=== PATIENT | female | born 1985 | race Caucasian/White ===

== ENCOUNTER → 2019-10-26 13:27 | Outpatient (BNVA) | payer MEDICAID, SELFPAY | PROVIDERS: Family Provider Family Medicine; Visit Provider Nurse Practitioner Family | DX: M25.571 Pain in right ankle and joints of right foot (principal); M25.471 Effusion, right ankle | CPT/HCPCS: 73610 ==

== ENCOUNTER → 2020-07-01 15:41 | Outpatient (BNVA) | payer MEDICAID, SELFPAY | PROVIDERS: Family Provider Family Medicine; Visit Provider Nurse Practitioner Family | DX: Z11.59 Encounter for screening for other viral diseases (principal) | CPT/HCPCS: 87635 ==

== ENCOUNTER → 2023-03-08 14:31 | Outpatient (BNVA) | payer MEDICAID, SELFPAY | PROVIDERS: Family Provider Family Medicine; Visit Provider Nurse Practitioner Family | DX: J02.9 Acute pharyngitis, unspecified (principal) | CPT/HCPCS: 87880 ==

== ENCOUNTER 2023-10-30 15:39 | Emergency (ER) | payer OTHER, SELFPAY ==
[2023-10-30 15:46] VITALS: BP 114/68; PULSE 90; RESP 18; TEMP 36.6; O2SAT 98; BMI 28.3
[2023-10-30 17:46] LABS: Basophils # 0.1 10^3/uL (0.0-0.1); Eosinophils # 0.2 10^3/uL (0.0-0.8); Eosinophils % 2.8 %; Lymphocytes # 2.2 10^3/uL (0.8-4.8); Lymphocytes % 35.9 %; Mean Corpuscular HGB Conc 32.4 g/dL (30-55); Mean Corpuscular Hemoglobin 33.2 pg (27-33); Mean Corpuscular Volume 102.4 fl (85-98); Monocytes # 0.4 10^3/uL (0.2-0.9); Monocytes % 7.1 %; Neutrophils # 3.23 10^3/uL (1.8-7.7); Nucleated Red Blood Cells % 0 %; Platelet Count 247 10^3/cmm (157-399); Red Blood Count 3.71 10^6/uL (3.85-5.65); Red Cell Distribution Width 11.5 % (12.1-15.1); White Blood Count 6.08 10^3/uL (3.29-11.43)
[2023-10-30 18:11] LABS: Alanine Aminotransferase 34 U/L (0-33); Albumin Level 4.2 g/dL (3.5-5.2); Alkaline Phosphatase 71 U/L (35-105); Anion Gap 12.9 (5-19); Aspartate Amino Transferase 28 U/L (0-32); Blood Urea Nitrogen 11 mg/dL (6-20); Calcium 8.9 mg/dL (8.5-10.5); Carbon Dioxide 26 mmol/L (22-29); Chloride 104 mmol/L (98-107); Globulin 2.9 g/dL (1.3-4.6); Glomerular Filtration Rate 69.7 mL/min (90-130); Glucose 91 mg/dL (65-115); Lipase 30 U/L (13-60); Osmolality Calculated 287 mOsm/kg (285-295); Potassium 3.9 mmol/L (3.5-5.1); Sodium 139 mmol/L (136-145); Total Bilirubin 0.2 mg/dL (0.15-1.2); Total Protein 7.1 g/dL (6.6-8.7)
--- NOTE | 2023-10-30 18:52 | USR_ITS ---
PROCEDURE INFORMATION: Exam: US Abdomen, Limited; Right Upper Quadrant Exam date and time: 10/30/2023 6:09 PM Age: 37 years old Clinical indication: Abdominal pain; Additional info: Ruq pain TECHNIQUE: Imaging protocol: Real time ultrasound of the abdomen with image documentation. Limited exam focused on the right upper quadrant. COMPARISON: No relevant prior studies available. FINDINGS: Liver: No acute findings. Gallbladder: Gallbladder is contracted otherwise without evidence of acute cholecystitis. Biliary ducts: No dilation. Pancreas: Visualized pancreas is unremarkable. Right kidney: No hydronephrosis. US/US gall bladder [id number] IMPRESSION: No acute findings.
[2023-10-30 19:02] LABS: HCG, Serum Qual Negative (Negative)
--- NOTE | 2023-10-30 19:26 | CTR_ITS ---
PROCEDURE INFORMATION: Exam: CT Abdomen And Pelvis With Contrast Exam date and time: 10/30/2023 7:55 PM Age: 37 years old Clinical indication: Abdominal pain; Flank; Right; Prior surgery; Surgery date: 6+ months; Surgery type: Csection 15 years ago; Additional info: Ruq pain TECHNIQUE: Imaging protocol: Computed tomography of the abdomen and pelvis with contrast. Radiation optimization: All CT scans at this facility use at least one of these dose optimization techniques: automated exposure control; mA and/or kV adjustment per patient size (includes targeted exams where dose is matched to clinical indication); or iterative reconstruction. Contrast material: OMNI 350; Contrast volume: 100 ml; Contrast route: INTRAVENOUS (IV); COMPARISON: US gall bladder [id number] 10/30/2023 6:09 PM RADIATION DOSE METRICS: Total DLP (mGy-cm): 494 FINDINGS: Liver: No acute findings Gallbladder and bile ducts: No stones or evidence of acute cholecystitis. Pancreas: No ductal dilation. Spleen: No splenomegaly. Adrenal glands: No mass. Kidneys and ureters: No stones or hydronephrosis. Stomach and bowel: No obstruction. Appendix: Normal appendix. Intraperitoneal space: No free air. No significant fluid collection. Vasculature: No abdominal aortic aneurysm. Lymph nodes: No enlarged lymph nodes. Urinary bladder: No acute findings. Reproductive: No acute findings. Bones/joints: No acute findings. Soft tissues: No acute findings. CT/CT abdomen pelvis w con* [id number] IMPRESSION: No acute abdominal findings.
[2023-10-30] MEDS: ketorolac 30 mg/mL INJ IVP (19:54)
[2023-10-30] MEDS: ondansetron 2 mg/ML SDV 2 mL 4 MG IVP (19:55)
[2023-10-30] MEDS: sodium chloride 0.9% 1,000 ML 999 ML IV (19:55)
[2023-10-30] MEDS: iohexol 350 mg/mL 500 mL Btl (per mL) IV (19:57)
[2023-10-30 21:02] LABS: Urine Appearance Clear (CLEAR); Urine Color Yellow (Yellow)
[2023-10-30 21:07] LABS: Bilirubin Urine Neg (Negative); Blood Urine 3+ (Negative); Glucose Urine UA Norm (Normal); Ketones Urine Negative (Negative); Leukocyte Esterase Urine Trace (Negative); Nitrate Urine Negative (Negative); Protein Urine Neg (Negative); Specific Gravity, Urine 1.005 (1.005-1.030); Urobilinogen Urine Norm (Negative); pH Urine 8 (5-7)
[2023-10-30 21:08] LABS: Bacteria Urine TRACE /hpf; Squamous Epithelial Cell Urine 0-4 /hpf (0-5); Sulfosalicylic Acid Urine Negative (Negative); WBC Urine 0-4 /hpf (0-5)
[2023-10-30 21:52] VITALS: BP 148/78; PULSE 77; O2SAT 98
--- NOTE | 2023-10-31 05:56 | ED_ITS ---
HPI - Abdominal Pain 2 General: Chief Complaint: Abdominal Pain Stated Complaint: right side abd pain, N/V, fever Time Seen by Provider: 10/30/23 18:26 History of Present Illness: 37 year old female with right upper quad rant pain radiating to her back. It's been present for three days, somewhat on and off. She has had nausea and vomiting. No diarrhea. She also notes she's had no fever on and off. No history of abdominal surgery other than 2 C sections and a tubal ligation. Associated Symptoms: Reports chills, fever(s), nausea and vomiting; Denies diarrhea and hematochezia Review of Systems 2 Const: Reports: fever(s) and chills; Denies: body aches Eyes: Denies: change in vision Card: Denies: chest pain or palpitations Resp: Denies: dyspnea, productive cough, non-productive cough or wheezing GI: Reports: abdominal pain, nausea and vomiting; Denies: diarrhea or hematochezia : Denies: difficulty voiding Skin/Breast: Denies: rash Neuro: Denies: headache(s), weakness in extremities, dizziness or confusion PFSH ED 2 PFSH: Social History Smoking and tobacco/nicotine status: never used tobacco/nicotine Physical Exam 2 Const: COMMON NORMALS: no acute distress GENERAL APPEARANCE: cooperative; not ill appearing and not frail appearing HENMT: COMMON NORMALS: normocephalic, atraumatic and Normal external nose present HEAD & SCALP: normocephalic and atraumatic FACE & SINUS: normal facial exam and face symmetric NOSE: Normal external nose present Eye: COMMON NORMALS: Equal, round and reactive pupils present and EOMs intact bilaterally PUPIL: Yes Equal, round and reactive pupils present Neck/C-Spine: GENERAL: Yes trachea midline Chest: CHEST: Yes Symmetrical chest wall rise Resp: COMMON NORMALS: normal respiratory effort, No retractions, No use of accessory muscles and clear to auscultation bilaterally AUSCULTATION: clear to auscultation bilaterally Cardio: COMMON NORMALS: regular rate and regular rhythm RATE: regular rate RHYTHM: regular rhythm GI: COMMON NORMALS: Soft to palpation INSPECTION: Yes normal to inspection PALPATION: Yes Soft to palpation, Yes Tenderness to palpation present (GI) Details: RUQ and Yes Guarding due to palpation present (GI) Extremity: COMMON NORMALS: no pedal edema Neuro: JENIFER COMA SCALE: document GCS findings Jenifer coma scale eye opening: Spontaneous Jenifer coma scale verbal response: Orientated Jenifer coma scale motor response: Obey commands [place] coma scale total score: 15 S ENSORY EXAM: Yes extremities (intact) Psych: COMMON NORMALS: speech normal SPEECH: Yes normal speech Skin: COMMON NORMALS: no rashes or lesions noted GENERAL SKIN EXAM: no rashes or lesions noted Course 2 Vital Signs: Vital signs: Vital Signs Temperature 98 F 10/30/23 15:46 Pulse Rate 77 10/30/23 21:52 Respiratory Rate 18 10/30/23 15:46 Blood Pressure 148/78 10/30/23 21:52 Pulse Oximetry 98 10/30/23 21:52 Oxygen Delivery Me thod Room Air 10/30/23 15:46 MDM - Abdominal Pain Medical Decision Making Vitals are normal here. She is afebrile. CBC is normal. other laboratory not remarkable. Gallbladder ultrasound was remarkable only for a contracted gallbladder. CT of the abdomen is non acute. Suspect biliary colic and this patient still yet. She will return for worsening symptoms despite treatment. Lab Data 10/30/23 17:38 10/30/23 17:38 Labs/Radiology: Radiology Impressions Gallbladder Ultrasound 10/30/23 18:52 IMPRESSION: No acute findings. Abdomen/Pelvis CT 10/30/23 19:26 IMPRESSION: No acute abdominal findings. Laboratory Results WBC 6.08 10^3/uL (3.29-11.43) 10/30/23 17:38 RBC 3.71 10^6/uL (3.85-5.65) L 10/30/23 17:38 Hgb 12.30 g/dL (11.27-16.99) 10/30/23 17:38 Hct 38.0 % (36-47) 10/30/23 17:38 MCV 102.4 fl (85-98) H 10/30/23 17:38 MCH 33.2 pg (27-33) H 10/30/23 17:38 MCHC 32.4 g/dL (30-55) 10/30/23 17:38 RDW 11.5 % (12.1-15.1) L 10/30/23 17:38 Plt Count 247 10^3/cmm (157-399) 10/30/23 17:38 MPV 11.0 fL (7.4-10.4) H 10/30/23 17:38 Neut % (Auto) 53.0 % 10/30/23 17:38 Lymph % (Auto) 35.9 % 10/30/23 17:38 [place] % (Auto) 7.1 % 10/30/23 17:38 Eos % (Auto) 2.8 % 10/30/23 17:38 Baso % (Auto) 1.0 % 10/30/23 17:38 Neut # (Auto) 3.23 10^3/uL (1.8-7.7) 10/30/23 17:38 Lymph # (Auto) 2.2 10^3/uL (0.8-4.8) 10/30/23 17:38 [place] # (Auto) 0.4 10^3/uL (0.2-0.9) 10/30/23 17:38 Eos # (Auto) 0.2 10^3/uL (0.0-0.8) 10/30/23 17:38 Baso # (Auto) 0.1 10^3/uL (0.0-0.1) 10/30/23 17:38 Nucleated RBC % (auto) 0 % 10/30/23 17:38 Nucleated RBCs # 0.0 /100WBC 10/30/23 17:38 Sodium 139 mmol/L (136-145) 10/30/23 17:38 Potassium 3.9 mmol/L (3.5-5.1) 10/30/23 17:38 Chloride 104 mmol/L (98-107) 10/30/23 17:38 Carbon Dioxide 26 mmol/L (22-29) 10/30/23 17:38 Anion Gap 12.9 (5-19) 10/30/23 17:38 BUN 11 mg/dL (6-20) 10/30/23 17:38 Creatinine 0.9 mg/dL (0.5-0.9) 10/30/23 17:38 GFR Calculation 69.7 mL/min (90-130) L 10/30/23 17:38 Glucose 91 mg/dL (65-115) 10/30/23 17:38 Calculated Osmolality 287 mOsm/kg (285-295) 10/30/23 17:38 Calcium 8.9 mg/dL (8.5-10.5) 10/30/23 17:38 Total Bilirubin 0.2 mg/dL (0.15-1.2) 10/30/23 17:38 AST 28 U/L (0-32) 10/30/23 17:38 ALT 34 U/L (0-33) H 10/30/23 17:38 Alkaline Phosphatase 71 U/L (35-105) 10/30/23 17:38 Total Protein 7.1 g/dL (6.6-8.7) 10/30/23 17:38 Albumin 4.2 g/dL (3.5-5.2) 10/30/23 17:38 Globulin 2.9 g/dL (1.3-4.6) 10/30/23 17:38 Lipase 30 U/L (13-60) 10/30/23 17:38 HCG, Qual Negative (Negative) 10/30/23 17:38 Urine Color Yellow (Yellow) 10/30/23 20:48 Urine Appearance Clear (CLEAR) 10/30/23 20:48 Urine pH 8 (5-7) H 10/30/23 20:48 Ur Specific [place] 1.005 (1.005-1.030) 10/30/23 20:48 Urine Protein Neg (Negative) 10/30/23 20:48 Urine Glucose (UA) Norm (Normal) 10/30/23 20:48 Urine Ketones Negative (Negative) 10/30/23 20:48 Urine Blood 3+ (Negative) H 10/30/23 20:48 Urine Nitrate Negative (Negative) 10/30/23 20:48 Urine Bilirubin Neg (Negative) 10/30/23 20:48 Prot Sulfosalicylic Acd Negative (Negative) 10/30/23 20:48 Urine Urobilinogen Norm mg/dL (Negative) 10/30/23 20:48 Ur Leukocyte Esterase Trace (Negative) H 10/30/23 20:48 Urine RBC 5-10 /hpf (0-2) H 10/30/23 20:48 Urine WBC 0-4 /hpf (0-5) H 10/30/23 20:48 Ur Squamous Epith Cells 0-4 /hpf (0-5) H 10/30/23 20:48 Amorphous Sediment Not Reportable 10/30/23 20:48 Urine Bacteria Trace /hpf (NONE) 10/30/23 20:48 All radiology interpretation(s) finalized by discharge Discharge Plan Discharge Patient Disposition: Home Clinical Impression: Abdominal pain, Biliary colic Condition: Stable Prescriptions: New hydrocodone-acetaminophen 5-325 mg tablet 1 tab PO Q8H PRN (Reason: pain) Qty: 7 0RF ketorolac 10 mg tablet 10 mg PO TID PRN (Reason: pain) Qty: 10 0RF ondansetron 4 mg tablet,disintegrating 4 mg PO Q6H PRN (Reason: nausea and vomiting) Qty: 14 0RF No Action Claritin-D 24 Hour 10-240 mg tablet extended release 24 hr 1 tab PO DAILY amoxicillin-pot clavulanate 875-125 mg tablet 1 tab PO BID 7 Days Qty: 14 0RF Discharge Orders: Discharge ED (Routine); Ordered 10/30/23 Ordered By: Raúl Reeder Referrals: Ricardo Hinton MD [Primary Care Provider] - 1-3 days Patient Instructions: Abdominal Pain (ED), Opioid Safety, Pain Management Activity Restrictions/Additional Instructions: Take nausea medication scheduled for the next 24 hours, then as needed. Other medications as directed. See your doctor next week. Return for fever, vomiting liquids or medications despite treatment, worsening pain despite treatment, yellowing of the eyes, any other concerning symptoms. Coding Level of Care Code ED [employer] for Lauren Rosales
== END 2023-10-30 21:52 | disposition home or self-care (01) ==
PROVIDERS: Family Medicine; Emergency Provider Emergency Medicine; PCP Family Medicine
DX: K80.50 Calculus of bile duct without cholangitis or cholecystitis without obstruction (principal); R10.11 Right upper quadrant pain
CPT/HCPCS: 36415; 74177; 76705; 80053; 81001; 83690; 84703; 85025; 96374; 96375; 99285; J1885; J2405; J7030; Q9967